=== PATIENT | male | born 1945 | race Caucasian/White ===

== ENCOUNTER 2024-09-17 15:04 | Observation (INO) | payer MEDICARE, OTHER, SELFPAY ==
[2024-09-17] VITALS (11 sets, daily range): BP systolic 110–169; BP diastolic 62–94; PULSE 61–75; BMI 22.6; BMI 21.7
[2024-09-17 11:57] LABS: ALT (SGPT) 18 U/L (0-50); AST (SGOT) 22 U/L (17-59); Albumin 3.9 g/dl (3.5-5.0); Alkaline Phosphatase 70 U/L (38-126); Blood Urea Nitrogen 20 mg/dl (9-20); Calcium 9.5 mg/dl (8.4-10.2); Carbon Dioxide 32 mmol/L (22-30); Chloride 105 mmol/L (98-107); Glucose 122 mg/dl (70-99); Lipase 123 U/L (23-300); Potassium 4.2 mmol/L (3.5-5.1); Sodium 142 mmol/L (135-145); Total Bilirubin 1.2 mg/dl (0.2-1.3); Total Protein 6.8 g/dl (6.3-8.2); eGFR > 60.00
[2024-09-17 12:02] LABS: Troponin I < 0.012 ng/ml
[2024-09-17 12:11] LABS: % Basophils 1.7 % (0-2); % Eosinophils 0.8 % (0-6); % Immature Granulocytes 0.4 % (0-0.5); % Monocytes 7.1 % (1.7-9.3); Absolute Basophils 0.1 10^3/uL (0-0.2); Absolute Lymphocytes 0.9 10^3/uL (1.2-3.4); Absolute Monocytes 0.4 10^3/uL (0.1-0.6); Absolute Neutrophils 3.9 10^3/uL (1.4-6.5); Hemoglobin 14.3 g/dL (13.0-18.0); Mean Corp Hgb Conc. 33.3 g/dL (33.0-37.0); Mean Corpuscular Hgb 30.1 pg (27.0-31.0); Mean Corpuscular Volume 90.5 fL (80.0-94.0); Mean Platelet Volume 9.5 fL (7.4-10.4); Nucleated Red Blood Cells % 0 % (-); Platelet Count 213 10^3/uL (130-400); Red Blood Cell Count 4.75 10^6/uL (4.70-6.10); Red Cell Dist. Width 12.1 % (11.5-14.5); White Blood Cell Count 5.3 10^3/uL (4.8-10.8)
--- NOTE | 2024-09-17 13:35 | ED.GENMED ---
History of Present Illness
General
Chief Complaint: Chest Pain
Source: patient and spouse
Time Seen by Provider: 09/17/24 13:12
History of Present Illness
History of Present Illness:
79-year-old male with past medical history of atrial fibrillation, Parkinson's disease and intermittent episodes of hyper/hypotension presenting to the ER for evaluation of multiple episodes of near syncope, lightheadedness/dizziness, chest
tightness and shortness of breath with symptoms ongoing for the last week or so, they were in [place] emergency department where he had blood work and CTA imaging done of his chest abdomen and pelvis which did not yield any pathology. Patient
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
shaven shower when he states he felt like he was going to pass out multiple times. Patient has been monitoring his heart rate and blood pressure at home with the stating most of his blood pressures are around 140-160 systolically and 80
diastolically and a heart rate that is in the low 60s to 50s. Currently patient states that he feels okay but his symptoms mainly get worse when he goes to stand up. Patient notes that the atrial fibrillation history is a relatively new diagnosis
from this past January and that they have changed medications a few times including adding midodrine to his medication regimen due to episodes of hypotension
Past History
Past History
ED Past Medical History: Arrthythmia and Other (Parkinson)
ED Past Surgical History: Urological
Social History
Tobacco: Non-smoker
Alcohol: None
Drug: None
Personal:
Living: with family
Review of Systems
Review of Systems
All Other Systems: ROS reviewed and negative except as documented in HPI and ROS
Phy Exam
Physical Exam
Physical Exam:
GENERAL: Alert , in no apparent distress
HEAD: NCAT
EYE: conjunctiva clear
NECK: Supple
ENT: o/p clr, mmm.
CARDIAC: Regular rate and rhythm
LUNGS: Clear breath sounds bilaterally, no acute respiratory distress, no wheezes/rales/rhonchi
NEUROLOGICAL: Alert and oriented
SKIN: Warm and dry, skin intact.
MUSCULOSKELETAL: well perfused.
PSYCH: Normal and appropriate interaction.
Scores
Heart Failure Risk
Heart Failure Risk Score: Not Applicable
Heart Score for Chest Pain Patients
STEMI patient?: Not applicable
Withdrawal Assessment of Alcohol
Withdrawal Assessment Completed?: Not applicable
Course
Orders/Labs/Results
Orders:
Orders
09/17/24 Breakfast
Regular
At Your Request: Limited Participation
09/17/24 11:12
EKG [Electrocardiogram (*1)] Urgent
Reason for Study: Chest Pain
09/17/24 11:33
Complete Blood Count/With Diff Urgent
Comprehensive Metabolic Panel Urgent
Lipase Urgent
TSH Reflex To Free T4 Routine
Comment: ADD ON
Troponin I Urgent
09/17/24 13:33
Orthostatic VS- Treatment ONCE
09/17/24 14:13
Troponin I Urgent
09/17/24 14:32
Admit/Transfer Patient As Directed
Co-Sign Provider:
Level of Care: Observation services
Assign to:: Telemetry
Physician / Group: Nikhil
Diagnosis: Chest Pain, Orthostasis
Reason for Telemetry: Chest Pain syndromes
Date to Stop Telemetry: 09/19/24
Time to Stop Telemetry: 11:00
09/17/24 14:34
PRN Pain Medication Management As Directed
May give lesser potent ordered pain med per pt: Yes
preference::
Protocol:: Medication orders for pain may be administered in a
manner that supports deferring to patient preference
when the pt is:
- Requesting an ordered lesser potent pain medication.
Least to most potent pain medications are defined
as: acetaminophen < NSAID < tramadol < opioids
(morphine, oxycodone, hydromorphone).
- Requesting a lesser dose of the same medication IF
ORDERED.
- Requesting a less intrusive route of administration
if both routes are prescribed by the provider (PO <
IV).
09/17/24 14:35
Code Status As Directed
Resuscitation Status: Full Code
09/17/24 14:39
Add On- LAB Routine
Tests Added?: TSH w/Reflex
09/17/24 16:14
Acetaminophen [Tylenol] 650 mg PO Q4HPRN PRN
Midodrine [ProAmatine] 5 mg PO TID@0800,1300,1800 PRN
09/17/24 16:14
Activity As Directed
Activity Level: Out of Bed-Early Mobility
With Assistance
Orthostatic Vital Signs As Directed
Orthostatic VS Frequency: BID
Teds [Anti-embolism (MAIRA) Hose] As Directed
Type: Thigh high
Vital Signs As Directed
Frequency: Per unit guidelines
09/17/24 18:00
Midodrine [ProAmatine] 5 mg PO TID@0800,1300,1800
09/17/24 20:00
Apixaban [Eliquis] 5 mg PO BID
Flecainide [Tambocor] 100 mg PO BID
09/17/24 22:00
Melatonin 5 mg PO HSPRN PRN
09/18/24 08:00
Atorvastatin [Lipitor] 20 mg PO DAILY
Fludrocortisone Acetate [Florinef] 0.2 mg PO DAILY
Metoprolol Xl [Toprol Xl] 25 mg PO DAILY
09/19/24 11:00
DC Protocol for Telemetry ONCE
Abnormal Lab Results
09/17/24
11:33
Absolute Lymphs (auto) 0.9 L 10^3/uL
(1.2-3.4)
Lymphocytes % 16.0 L %
(20.5-51.1)
Carbon Dioxide 32 H mmol/L
(22-30)
Glucose 122 H mg/dl
(70-99)
09/17/24 11:33
09/17/24 11:33
Vital Signs
Initial and Last Documented VS:
Initial Vital Signs
Temp Pulse Resp BP Pulse Ox
98.1 F 68 18 144/78 98
09/17/24 11:22 09/17/24 11:22 09/17/24 11:22 09/17/24 11:22 09/17/24 11:22
Last Documented Vital Signs
Temp Pulse Resp BP Pulse Ox
97.7 F 68 16 161/75 98
09/17/24 15:30 09/17/24 15:30 09/17/24 15:30 09/17/24 15:30 09/17/24 15:30
MDM/Problems Addressed
Differential Diagnosis Includes:
Orthostasis, cardiac arrhythmia/dysrhythmia, ACS, anemia, electrolyte disturbance, polypharmacy
MDM/Problems Addressed:
79-year-old male presenting to the ER for evaluation of intermittent but multiple episodes of near syncope, chest discomfort and shortness of breath that have been waxing and waning since last week. Was seen at [place] emergency department and
after workup there was discharged home. Still having symptoms and this morning symptoms were worse prompting them to come back to the emergency department. No fevers or infectious symptoms. Patient hemodynamically stable. Labs reassuring. EKG
does show sinus bradycardia with a first-degree heart block. Given symptoms seem to be worse positionally I do suspect there is a degree of orthostasis. It is possible patient could be under going a cardiac arrhythmia/tachybradycardia
syndrome/heart block as potential cause as well. Given he was already worked up extensively in the emergency department and discharged home but continues with symptoms discussed risk versus benefit of admission and ultimately patient and feel
more comfortable being admitted for further workup. Will notify hospitalist team.
Chronic conditions affecting care: Arrhythmia
Acute Exacerbation and/or Progression of Chronic Illness: Arrhythmia
*Pulse Oximetry
Patient hypoxic: no
*EKG
Heart Rate: 65
Rate: normal
Rhythm: sinus and PAC's
Interval: first degree heart block
*Business Services Specialist Sales Interpretation
Rate: bradycardiac
Rhythm: sinus and PAC's
*Critical Care Note
Total Time (30-74mins, 75-104mins- exclusive of procedures): Not Applicable
Data Reviewed
Review of Other/Old Records Reveals: Labs, Records and Radiology Studies
Source: patient
Patient Management
Discussion with other providers: Hospitalist
Escalation/DeEscalation of care consider admission/obs:
Hospitalist team notified and accepts for continued evaluation and treatment
ED Attending Note
-
Portions of this chart may have been created with voice recognition software.� Occasional wrong word or��sound alike� substitutions may have occurred due to the inherent limitations of voice recognition software.
Discharge Plan
Departure
Patient Disposition: Admit
Date of Disposition: 09/17/24
Time of Disposition: 13:35
Presentation/result/management discussed w/ accepting MD/DO: Hospitalist
Discharge Problem:
Near syncope, Chest pain
Interventions
Interventions:
*Risk Screen - Suicide Last Done: 09/17/24 11:22
*General Assessment Last Done: 09/17/24 16:12
*Neglect/Abuse Screening Last Done: 09/17/24 13:00
*ED- Fall Risk Assessment Last Done: 09/17/24 13:00
*ED COVID-19 Vaccine History Last Done: 09/17/24 13:00
*Nursing Disposition Last Done: 09/17/24 16:12
ED- Cardiac Assessment Last Done: 09/17/24 13:40
Discharge Date and Time
Discharge Date/Time: 09/17/24 16:13
--- NOTE | 2024-09-17 14:40 | HPS.HSE ---
Family Physician
-
Family Physician: Lona Monroe
Chief Complaint
-
Chest Pain and Dizziness
History of Present Illness
Patient is a 79 y/o male past medical history of Atrial Fibrillation, Parkinson's Disease and Orthostatic Hypotension who presents with chest pain and dizziness. Patient reports intermittent episodes of chest pain over the past week. He was seen
at [facility] on for these symptoms at which time it was felt to be related to elevated blood pressure. Today patient developed recurrent symptoms prompting him to come to [facility] for evaluation. Patient describes sharp
stabbing pains in the center of his chest which lasted about an hour. He reports associated shortness of breath. He reports frequent dizziness upon standing. He denies chest pain at the present time.
Medical History
Past Medical History
Past Medical History: Reports Other
Additional Past Medical History:
Paroxysmal Atrial Fibrillation
Parkinson's Disease
Orthostatic Hypotension
Nephrolithiasis
Past Surgical History: Reports Other
Additional Past Surgical History:
Vasectomy
LASIK
Moh's
Lithotripsy
Social History
Tobacco: Non-smoker
Alcohol: Other (Previous daily glass of wine but none for several months)
Family History
Family History: Not pertinent
Allergies / Home Medications
Allergies reflects when Allergies were last updated in [facility].
Home Medications with original date entered in [facility]
Allergy/Medication List:
Allergies
Allergy/AdvReac Type Severity Reaction Status Date / Time
No Known Allergies Allergy Unverified 09/17/24 11:27
Home Medications
acetaminophen 500 mg tablet 500 mg PO DAILYPRN PRN mild pain 09/17/24
apixaban 5 mg tablet (Eliquis) 5 mg PO BID 09/17/24
ascorbic acid (vitamin C) 500 mg tablet (Vitamin C) 500 mg PO DAILY 09/17/24
atorvastatin 20 mg tablet 20 mg PO DAILY 09/17/24
cholecalciferol (vitamin D3) 25 mcg (1,000 unit) tablet 25 mcg PO DAILY 09/17/24
flecainide 100 mg tablet 100 mg PO BID 09/17/24
fludrocortisone 0.1 mg tablet 0.2 mg PO DAILY 09/17/24
glucosamine sulf dipot chlr,msm,chond 550 mg-C 30 mg-derek 1 mg capsule (Glucosamine Chondroitin) 1 cap PO DAILY 09/17/24
melatonin 5 mg chewable tablet 5 mg PO HSPRN PRN sleep 09/17/24
metoprolol succinate 25 mg tablet,extended release 24 hr 25 mg PO DAILY 09/17/24
midodrine 10 mg tablet 10 mg PO TID 09/17/24
therapeutic multivitamin 1 tab PO DAILY 09/17/24
Review of Systems
-
History Source: Patient
A 12 point ROS was completed and negative except as noted: Yes
Constitutional: Denies Fever or Chills
Respiratory: Denies Cough
Cardiac: Reports Chest Pain; Denies Palpitations
Abdomen/GI: Denies Abdominal Pain, Nausea, Vomiting, Diarrhea or Constipated
Neurological: Reports Dizzy
Physical Exam
Vital Signs
Vital Signs
Temp Pulse Resp BP Pulse Ox
98.1 F 68 18 144/78 98
09/17/24 11:22 09/17/24 11:22 09/17/24 11:22 09/17/24 11:22 09/17/24 11:22
Physical Exam
General: Well Developed, Well Nourished and No Apparent Distress
HEENT: NormoCephalic, Anicteric, Moist mucous membranes and Atraumatic
Respiratory: Clear and Non Labored Respirations; No Wheezes, Rales or Rhonchi
Cardiac: S1/S2 and Regular Rhythm; No Murmur
GI: Soft, Non Tender, Non Distended and Normal Bowel Sounds
Rectal: Deferred by Provider
Musculoskeletal: No Clubbing, No Cyanosis and No Edema
Skin: Warm and Dry; No Rash
Neuro: Awake, Alert, Oriented, Nonfocal/grossly intact and Tremors
Psych: Calm
Laboratory Results
-
09/17/24
09/17/24
Laboratory Results
Total Bilirubin 1.2 mg/dl (0.2-1.3) 09/17/24
AST 22 U/L (17-59) 09/17/24
ALT 18 U/L (0-50) 09/17/24
Alkaline Phosphatase 70 U/L (38-126) 09/17/24
Troponin I < 0.012 ng/ml 09/17/24:
Lipase 123 U/L (23-300) 09/17/24:
Data Reviewed
-
Lab Data: Labs Reviewed by me
Impression/Plan
-
Chest Pain, suspect related to labile hypertension - Patient is chest pain free
-Initial troponin negative - Continue to trend
Orthostatic Hypotension
-Difficult situation as overall blood pressure is running high
-Reviewed with patient and about using compression stockings to help with orthostasis
-Continue fludrocortisone 0.2mg Daily
-Adjustments made to midodrine dosing
-If SBP Less Than 140 take midodrine 10mg
-If SBP Between 140-160 take midodrine 5mg
-If SBP Greater Than 160 hold midodrine
-Patient needs close follow-up with PCP / Cardiology (Dr. Brooke Fuentes with [facility]) for further adjustment
Paroxysmal Atrial Fibrillation
-Continue Eliquis
-Continue Flecainide and Toprol
Hyperlipidemia
-Continue atorvastatin
Parkinson's Disease
-Patient is not on any medications as outpatient
DVT proph: Eliquis
Code Status: Full Code
[2024-09-17 14:51] LABS: Troponin I < 0.012 ng/ml
--- NOTE | 2024-09-17 14:58 | W.PN.UPDATE ---
Update Note
Progress Note Update
This is an addendum to the H&P written by Ana Laura Mustafa on 09/17/2024.� Patient seen and examined independently with PA.
79-year-old male past medical history of atrial fibrillation, Parkinson disease, orthostatic hypotension, labile hypertension, presenting with fluctuations in blood pressure with associated sharp chest pain and lightheadedness.� He has chronic
orthostatic hypotension due to Parkinson's on midodrine and fludrocortisone.� Midodrine increased to 3 times daily a few months ago.
Photographic Press Screwmaker is Dr. Fuentes with [employer] [facility] [place].
Recently had [facility] for chest pain with negative workup and discharge.
EKG shows first-degree AV block.� Troponin negative.
No symptoms currently.� Orthostatics are barely positive.�
Symptoms likely due to labile hypertension.� Difficult situation since blood pressure has been above 160s here.� Patient needs outpatient titration of midodrine.� He has also not been wearing compression stockings.� For now we will continue
midodrine 5 mg 3 times daily if blood pressure less than 160 plus an additional 5 mg if blood pressure less than 140.
[2024-09-17 15:47] LABS: TSH Reflex To Free T4 1.12 uIU/ml (0.47-4.68)
--- NOTE | 2024-09-17 15:51 | CM ---
Addendum entered by Xochitl Benitez 09/17/24 15:56:
WU completed with pt
Original Note:
CM met with pt bedside
Pt resides with his spouse in a 2SH with 1STE
Full flight to 2nd floor
Pt is indep with his ADLs, drives +
Denies use of DMEs and financial insecurities
PCP- Lona Monroe
Rx- [facility]
Discharge Disposition- anticipate home no needs
[2024-09-17] MEDS: ProAmatine 5 MG PO (17:46)
--- NOTE | 2024-09-17 17:51 | PTCARENOTE ---
Pt was received from ED at 1530. Pt is AAOx3, ambulated to the unit bed with supervision. Pt denies chest pain. Feeling well currently. Care plan reviewed with pt. at the bedside.
[2024-09-17] MEDS: ELIQUIS 5 MG PO (19:41)
[2024-09-17] MEDS: TAMBOCOR 100 MG PO (19:41)
[2024-09-17] MEDS: MELATONIN 5 MG PO (21:21)
[2024-09-18 03:21] VITALS: BP 138/73
[2024-09-18 08:07] VITALS: BP 158/82
[2024-09-18] MEDS: ELIQUIS 5 MG PO (08:47)
[2024-09-18] MEDS: TOPROL XL 25 MG PO (08:47)
[2024-09-18] MEDS: FLORINEF 0.2 MG PO (08:48)
[2024-09-18] MEDS: TAMBOCOR 100 MG PO (08:48)
[2024-09-18] MEDS: ProAmatine 5 MG PO ×2 (08:48→12:59)
[2024-09-18] MEDS: LIPITOR 20 MG PO (08:48)
[2024-09-18 10:37] LABS: Blood Urea Nitrogen 21 mg/dl (9-20); Calcium 9.3 mg/dl (8.4-10.2); Carbon Dioxide 29 mmol/L (22-30); Chloride 104 mmol/L (98-107); Estimated Creatinine Clearance 65 ml/min; Glucose 132 mg/dl (70-99); Sodium 143 mmol/L (135-145); eGFR > 60.00
[2024-09-18 10:39] LABS: Troponin I < 0.012 ng/ml
[2024-09-18] MEDS: MIRALAX 17 GRAMS PO (11:22)
[2024-09-18] MEDS: SENOKOT-S 1 TABLET PO (11:22)
[2024-09-18 11:46] VITALS: BP 111/73; BP 158/76; PULSE 62
--- NOTE | 2024-09-18 11:51 | PTOTSP ---
The patient was able to ambulate and perform stairs without difficulty, drop in blood pressure as noted although patient remained asymptomatic. No PT needs identified at this time, will sign off. Discussed with RN.
[2024-09-18 12:15] VITALS: BP 158/76
--- NOTE | 2024-09-18 13:07 | W.PN.HOSP.TC ---
Today's Communication/Plan
-
dc home
OP Cards f/u
Assessment / Plan
Assessment / Plan
Chest Pain, suspect related to labile hypertension versus severe anxiety
- Troponins are negative x 3. No events were noted on telemetry. Patient under increasing amount of stress and anxiety due to recent travel plan which was supposed to be yesterday which got canceled
- Patient follows with [facility] cardiology in [place]-recommend to make follow-up appointment.
Orthostatic hypotension likely secondary to central autonomic dysfunction likely due to Parkinson Disease
-Difficult situation as overall blood pressure is running high
-Reviewed with patient and about using compression stockings to help with orthostasis
-Continue fludrocortisone 0.2mg Daily
-Reduce midodrine dose to 5 mg and can increase to 10 mg if with significant drop in blood pressure at home noted. Recommended to check blood pressure at home.
-Patient needs close follow-up with PCP / Cardiology (Dr. Brooke Fuentes with [facility]) for further adjustment
Paroxysmal Atrial Fibrillation
-Continue Eliquis
-Continue Flecainide and Toprol
Hyperlipidemia
-Continue atorvastatin
Parkinson's Disease
-Patient is not on any medications as outpatient. Tremors noted.
DVT proph: Eliquis
Code Status: Full Code
Discussed with patient's spouse at bedside in detail
Eval by PT and patient did well. Did had drop in blood pressure however patient asymptomatic.
More than 30 minutes spent in discharge including
Final examination of the patient
Summarizing hospital stay
Instructions for continuing care to all relevant caregivers
Preparation of discharge records, prescriptions, and referral forms
Total time spent (in minutes): 55
Anticipated Discharge: Today
Subjective/Interval History
-
Date of Service: September 18, 2024
States some mild abdominal cramping after eating breakfast
States bowel movement was 2 days ago
Patient under increasing amount of stress and anxiety due to recent travel plan which was supposed to be yesterday which got canceled
Objective Data
-
Labs:
Laboratory Results
09/18/24
09:16
Sodium 143
Potassium 4.0
Chloride 104
Carbon Dioxide 29
BUN 21 H
Creatinine 0.9
Glucose 132 H
Calcium 9.3
Vital Signs:
Vital Signs
Temp Pulse Resp BP Pulse Ox
98 F 58 18 148/70 96
09/18/24 12:15 09/18/24 12:59 09/18/24 12:15 09/18/24 12:59 09/18/24 12:15
I&O
09/17/24 09/18/24 09/19/24
06:59 06:59 06:59
Intake Total 480 / 480
Balance 480 / 480
Physical Exam
-
General: Well Developed and No Apparent Distress
HEENT: Normocephalic, Atraumatic and Moist Mucous Membranes
Respiratory: Clear to Auscultation
Cardiac: Regular Rhythm and S1/S2; Negative Murmur, Rub or Gallop
GI: Soft, Nontender, Nondistended and Normal Bowel Sounds; Negative Organomegaly
Rectal: Deferred by Provider
Musculoskeletal: No Clubbing, No Cyanosis and No Edema
Skin: Negative Rash
Neuro: Awake, AO x 3, Nonfocal/Grossly Intact and Other (Tremors noted)
Psych: Calm
--- NOTE | 2024-09-18 13:19 | W.DCSUMMARY ---
Discharge Summary
Discharge Data
Date of Admission: 09/17/24
Date of Discharge: 09/18/24
-
Pending Results: No
Hospital Course
79-year-old male past medical history of Parkinson disease, atrial fibrillation, hyperlipidemia, autonomic dysfunction who is presented with complaint of chest pain. Patient troponin were checked and were found to be negative x 3. No events were
noted on telemetry. EKG without significant ST or T wave changes. Patient chest pain resolved upon admission. Patient remained chest pain-free. Patient was found to have labile hypertension which was deemed secondary to autonomic dysfunction
secondary to Parkinson disease. Recommend to decrease midodrine to 5 mg 3 times daily and take additional dose if systolic blood pressure less than 140. Patient was eval by physical therapy and blood pressure drop was noted however patient was
asymptomatic. Recommended MAIRA stockings. Patient was tolerating diet. Spouse also stated patient under increasing amount of stress and anxiety due to recent travel plan which could have likely triggered chest discomfort. Patient did not have any
chest pain on the day of discharge. Patient was able to ambulate without any chest pain with exertion. 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
Discharge Plan
-
Patient Disposition: Home with Home Care
Discharge Diagnosis/Procedures: Chest pain atypical
Orthostatic hypotension likely secondary to central autonomic dysfunction likely due to Parkinson Disease
Condition: Fair
Diet: As tolerated
Activity: As tolerated
Driving Restrictions: As prior to admission
Activity Restrictions/Additional Instructions:
Follow-up with your primary senior game designer
Recommend midodrine 5 mg TID and can take additional 5mg dose if with Systolic Blood pressure less than 140. Recommended to check blood pressure at home.
Referrals:
Lona Monroe DO [Family Provider] - in less than 1 week
Prescriptions:
New
midodrine 5 mg Tablet
5 mg PO TID@0800,1300,1800 PRN (Reason: SBP Less Than 140) Qty: 30 0RF
Continued
atorvastatin 20 mg tablet
20 mg PO DAILY
flecainide 100 mg tablet
100 mg PO BID
fludrocortisone 0.1 mg tablet
0.2 mg PO DAILY
Eliquis 5 mg tablet
5 mg PO BID
therapeutic multivitamin Tablet
1 tab PO DAILY
acetaminophen 500 mg Tablet
500 mg PO DAILYPRN PRN (Reason: mild pain)
ascorbic acid (vitamin C) [Vitamin C] 500 mg Tablet
500 mg PO DAILY
cholecalciferol (vitamin D3) 25 mcg (1,000 unit) Tablet
25 mcg PO DAILY
melatonin 5 mg Tablet,Chewable
5 mg PO HSPRN PRN (Reason: sleep)
Glucosamine Chondroitin 550-30-1 mg Capsule
1 cap PO DAILY
metoprolol succinate 25 mg Tablet Extended Release 24 Hr
25 mg PO DAILY
Changed
midodrine 10 mg tablet
5 mg PO TID Qty: 0 0RF
Discharge Orders:
Discharge Patient (As Directed); Ordered 09/18/24
Ordered By: Chandra Uriarte
Discharge Date and Time
Discharge Date/Time: 09/18/24 14:39
Print Language: TURKMEN
--- NOTE | 2024-09-18 13:58 | PTCARENOTE ---
Pt and educated on dc packet. Educated on PRN midodrine medication. IV and tele removed. No questions at this time. Pt to transport home. VN information provided.
--- NOTE | 2024-09-18 15:56 | CM ---
MD entered order for discharge.
Spoke with Maddi she said she will drive pt home.
Offered VN they declined VN .
PLAN Home no needs
== END 2024-09-18 14:39 | disposition home or self-care (01) ==
LOC: 4 EAST ACU 15:04
PROVIDERS: Physician Assistant Medical; ADMITTING PHYSICIAN Hospitalist; ATTENDING PHYSICIAN Hospitalist; EMERGENCY PHYSICIAN Emergency Medicine; FAMILY PHYSICIAN Family Medicine
DX: G20.A1 Parkinson's disease without dyskinesia, without mention of fluctuations (principal); R07.9 Chest pain, unspecified; Z79.01 Long term (current) use of anticoagulants; I48.0 Paroxysmal atrial fibrillation; Z79.899 Other long term (current) drug therapy; E78.5 Hyperlipidemia, unspecified; I95.1 Orthostatic hypotension
CPT/HCPCS: 80048; 80053; 83690; 84443; 84484; 85025; 93005; 97161; 99285; G0378